=== PATIENT | female | born 1990 | race Two or more races ===

== ENCOUNTER 2019-09-19 07:57 | Emergency (ER) | payer SELFPAY ==
[~2019-09-19] VITALS: Ht 162.6 cm; Wt 78.5 kg
[2019-09-19 08:01] VITALS: Ht 162.6 cm; Wt 78.5 kg
[2019-09-19 09:34] VITALS: BP 115/72
== END 2019-09-19 09:34 | disposition home or self-care (01) ==
LOC: ED 07:57
DX: N39.0 Urinary tract infection, site not specified (principal); Z20.828 Contact with and (suspected) exposure to other viral communicable diseases